=== PATIENT | male | born 2000 | race Caucasian/White ===

== ENCOUNTER 2021-07-02 15:44 | Emergency (ER) | payer BC, SELFPAY ==
--- NOTE | ~2021-07-02 | XR_ITS ---
EXAMINATION: XR chest 2V EXAM DATE: 07/02/2021 17:03 INDICATION: Chest pain @ center of chest with SOB x 1 day. TECHNIQUE: Frontal and lateral projections of the chest obtained and reviewed. There is no prior izzy dy for comparison. FINDINGS: The lungs are clear. There are no pleural effusions. The cardiomediastinal silhouette is within normal limits. There is no pneumothorax suspected. The bones and soft tissues are unremarkab le. IMPRESSION: No acute cardiopulmonary findings. Reviewed, dictated and finalized at location G.
[2021-07-02 15:44] VITALS: BP 144/99; PULSE 96; RESP 20; TEMP 36.6; O2SAT 100
--- NOTE | 2021-07-02 15:47 | ECG_ITS ---
Measurements Intervals [place] Rate: 90 P: 38 MD: 134 QRS: 7 QRSD: 94 T: 29 QT: 344 QTc: 422 Interpretive Statements SINUS RHYTHM DELAYED PRECORDIAL R/S TRANSITION BORDERLINE ECG Electronically Signed On 07-02-2021 18:58:31 CDT by Filippo Grant D.O.
[2021-07-02 15:48] VITALS: PULSE 91
[2021-07-02] MEDS: ONDANSETRON INJ 4 MG/2 ML VIAL IV PUSH (16:08)
[2021-07-02] MEDS: SODIUM CHLORIDE 0.9% IV 1,000 ML 999 ML IV CONT (16:09)
[2021-07-02] MEDS: KETOROLAC 30 MG/ML VIAL (*BKC) IV PUSH (16:10)
[2021-07-02 16:18] LABS: Basophils Absolute Auto 0.05 K/mm3 (0.00-0.10); Basophils Percent Auto 0.3 % (0.0-1.0); Eosinophils Absolute Auto 0.04 K/mm3 (0.02-0.50); Eosinophils Percent Auto 0.3 % (1.0-6.0); Hematocrit 47.1 % (40.0-54.0); Hemoglobin 16.6 g/dL (14.0-18.0); Immature Granulocyte Absolute 0.08 K/mm3 (0.00-0.00); Immature Granulocyte Percent A 0.5 % (0.0-0.0); Lymphocytes Absolute Auto 1.32 K/mm3 (1.10-4.50); Lymphocytes Percent Auto 8.7 % (18.0-42.0); Mean Corpuscular HGB Conc 35.2 g/dL (32.0-36.0); Mean Corpuscular Hemoglobin 30.8 pg (27.0-31.0); Mean Corpuscular Volume 87.4 fL (78.0-102.0); Mean Platelet Volume 9.3 fl (8.7-11.0); Monocytes Absolute Auto 0.73 K/mm3 (0.10-0.90); Monocytes Percent Auto 4.8 % (2.0-11.0); Neutrophils Percent Auto 85.4 % (50.0-70.0); Platelet Count Result 333 K/mm3 (150-420); Red Blood Count 5.39 M/mm3 (4.70-6.10); Red Cell Distribution Width 12.6 % (11.6-14.4); White Blood Count 15.2 K/mm3 (4.8-10.8)
[2021-07-02 16:27] LABS: Partial Thromboplastin Time 27.3 SEC (23.90-30.70); Prothrombin Time 10.9 Seconds (9.50-12.10)
[2021-07-02 16:33] LABS: Alanine Aminotransferase 72 U/L (16-63); Albumin Level 4.6 g/dL (3.4-5.0); Alkaline Phosphatase 80 U/L (46-116); Anion Gap 16 mmol/L (8-16); Aspartate Amino Transferase 27 U/L (15-37); Bilirubin,Total 0.7 mg/dL (0.00-1.00); Blood Urea Nitrogen 11 mg/dL (7-18); Calcium 9.5 mg/dL (8.5-10.1); Carbon Dioxide 24 mmol/L (21-32); Chloride 100 mmol/L (98-108); Estimated CRCL calculation 151 ml/min; Estimated Glomerular Filt Rate > 60; Glucose 103 mg/dL (70-99); Lipase 72 U/L (73-393); Osmolality Calculated 289 mOsm/kg (285-295); Potassium 3.6 mmol/L (3.5-5.1); Sodium 140 mmol/L (136-145); Total Protein 8.4 g/dL (6.4-8.2)
[2021-07-02 16:35] LABS: Troponin I 4.5 ng/L (0.00-60.4)
[2021-07-02 17:00] LABS: SARS-CoV-2 RNA PCR Negative (Negative)
--- NOTE | 2021-07-02 17:04 | ED.CHESTPAIN ---
HPI - Chest Pain General Chief Complaint: Chest Pain Stated Complaint: Chest pain, trouble breathing, vomiting, diarrhea Source: patient Mode of arrival: ambulatory Limitations: no limitations History of Present Illness HPI narrative: this is a 21-year-old male with recent diagnosis of high blood pressure and was started on blood pressure medication 2 days ago, woke up this morning with some chest discomfort reproducible with palpation mid sternal area and epigastric area with some mild shortness of breath patient is not a smoker, no illicit drug use. There is no radiation of his pain there was some nausea with no vomiting no diarrhea constipation no abdominal pain pain started earlier this morning after he woke up and has been off and on throughout the day. Patient has no known coronary history no family history of heart disease nonsmoker. MD complaint: chest discomfort Onset (ago): hour(s) Timing of current episode: episodic Onset: during rest Pain location: parasternal ( reproducible with palpation) Pain radiation: none Severity: mild Quality: aching Related Data Home Medications Medication Instructions Recorded Confirmed lisinopril 10 mg PO DAILY 07/02/21 07/02/21 Allergies Allergy/AdvReac Type Severity Reaction Status Date / Time No Known Allergies Allergy Unverified 08/13/14 21:44 Review of Systems Review of Systems: All systems reviewed & are unremarkable except as noted in HPI and below PMFSH Past Medical History Medical History HTN (hypertension) Exam Const: General: no acute distress and alert Orientation/consciousness: patient oriented x3 HENMT: Head: normal to inspection Eyes: Conjunctivae: conjunctivae normal Pupils: Equal, round and reactive pupils present EOM: EOMs intact bilaterally Direct Ophthalmoscopy: no photophobia Neck: Neck: normal visual inspection, no lymphadenopathy and no meningeal signs Chest: Chest palpation & inspection: normal inspection of the chest Resp: Effort & Inspection: normal respiratory effort Auscultation: clear to auscultation bilaterally Cardio: Rate: regular rate Rhythm: regular rhythm GI: Auscultation: normal bowel sounds Other: epigastric tenderness with palpation : Testes: Testes normal Back/Spine/Pelvis: Back: no CVA tenderness Skin: General skin exam: normal color Rashes: no rashes Neuro: General: patient oriented x3, moves all extremities, no meningeal signs and no focal motor deficits Extrem: General: normal to inspection and no pedal edema Psych: Mental Status: mental status grossly normal Affect: normal affect Course Course Emergency Course: patient received IV fluids and Toradol labs reviewed with patient along with some x-ray and will start the patient on a Z-Waldo for a upper respiratory tract infection. Vital Signs Vital signs: Vital Signs Temperature 36.6 C 07/02/21 15:44 Pulse Rate 96 07/02/21 15:44 Respiratory Rate 20 07/02/21 15:44 Blood Pressure 144/99 H 07/02/21 15:44 Pulse Oximetry 100 07/02/21 15:44 Temperature 36.6 C 07/02/21 15:44 Pulse Rate 91 07/02/21 15:48 Respiratory Rate 20 07/02/21 15:44 Blood Pressure 144/99 H 07/02/21 15:44 Pulse Oximetry 100 07/02/21 15:44 MDM - Chest Pain Lab Data Result diagrams: 07/02/21 16:09 07/02/21 16:09 Labs: Lab Results 07/02/21 07/02/21 07/02/21 Range/Units 16:09 16:09 16:09 WBC 15.2 H (4.8-10.8) K/mm3 RBC 5.39 (4.70-6.10) M/mm3 Hgb 16.6 (14.0-18.0) g/dL Hct 47.1 (40.0-54.0) % MCV 87.4 (78.0-102.0) fL MCH 30.8 (27.0-31.0) pg MCHC 35.2 (32.0-36.0) g/dL RDW 12.6 (11.6-14.4) % Plt Count 333 (150-420) K/mm3 MPV 9.3 (8.7-11.0) fl Immature Gran % (Auto) 0.5 H (0.0-0.0) % Neut % (Auto) 85.4 H (50.0-70.0) % Lymph % (Auto) 8.7 L (18.0-42.0) % [place] % (Auto) 4.8 (2.0-11.0) % Eos
[2021-07-02 17:30] VITALS: BP 142/81; PULSE 97; RESP 24; O2SAT 97
--- NOTE | 2021-07-02 18:20 | PC.NURSE ---
1610 WHILE RN WAS INITIATING IV ACCESS, PATIENT BECAME PALE, DIAPHORETIC, DIZZY, AND NAUSEOUS. PT PLACED IN [place]. VITAL SIGNS AND CARDIAC MONITORING AT THIS TIME. RN AT BEDSIDE UNTIL PATIENT RECOVERED FROM THIS EPISODE LASTING APPROX. 3 MINUTES. ERP MADE AWARE.
== END 2021-07-02 17:30 | disposition home or self-care (01) ==
PROVIDERS: Emergency Provider Emergency Medicine
DX: J06.9 Acute upper respiratory infection, unspecified (principal); Z20.822 Contact with and (suspected) exposure to COVID-19
CPT/HCPCS: 71046; 80053; 83690; 84484; 85025; 85610; 85730; 93005; 96361; 96374; 96375; 99283; 99284; C9803; J1885; J2405; J7030; U0003; U0005

== ENCOUNTER 2022-04-27 22:26 | Emergency (ER) | payer BC, SELFPAY ==
--- NOTE | ~2022-04-27 | XR_ITS ---
EXAM: XR ankle RT min 3V, XR foot RT 2V DATE: 04/27/2022 22:54 (accession [id number]), 04/27/2022 22:55 (accession [id number]) HISTORY: ankle fracture/dislocation . COMPARISON: None available. FINDINGS: Normal mineralization. Comminuted fractures of the distal fibular shaft posterior angulati on. Widening of the syndesmosis. Posteriorly displaced fractures of the medial malleolus and posterio r malleolus. Posterior dislocation of the talus. No lytic or blastic lesion. No erosion or periosteal change. Lower leg and ankle soft tissue swelling. IMPRESSION: Posterior right tibiotalar dislocation. Angulated fracture of the distal right fibular sh aft, with posteriorly displaced fractures of the right medial malleolus and right posterior malleolus (Carrington C type fracture pattern). Right syndesmosis injury. [facility]ed[facility] IMPRESSION: Posterior right tibiotalar dislocation. Angulated fracture of the d istal right fibular shaft, with posteriorly displaced fractures of the right me dial malleolus and right posterior malleolus (Carrington C type fracture pattern). R ight syndesmosis injury.
[2022-04-27 22:28] VITALS: BP 155/94; PULSE 84; RESP 20; TEMP 36; O2SAT 99
--- NOTE | 2022-04-27 22:36 | ED.LOWEXIN ---
HPI - Extremity Injury (Lower) General Chief Complaint: Extremity Injury, Lower Stated Complaint: R ankle pain Time Seen by Provider: 04/27/22 22:36 Source: patient Mode of arrival: wheelchair History of Present Illness HPI Narrative: 21-year-old male was at the Transfer To when he lost balance and fell. he twisted his right ankle and presents with -- 2 cm ulceration in front of the right medial malleolus -- pain and swelling of the lower leg/ ankle MD complaint: ankle injury Onset (ago): hour(s) ( 1 hour ago) Injury: Right: ankle and foot Type of Injury: eversion Place: other ( [place]) Severity: severe Relieving factors: immobilization Exacerbating factors: movement Context: fall Associated symptoms: snap/pop sensation Related Data Home Medications Medication Instructions Recorded Confirmed lisinopril 10 mg tablet 10 mg PO DAILY 07/02/21 04/28/22 Adult Low Dose Aspirin 81 mg PO BID 04/28/22 04/28/22 hydrocodone 5 mg-acetaminophen 325 5 tablet PO PRN PRN Pain 04/28/22 04/28/22 mg tablet Allergies Allergy/AdvReac Type Severity Reaction Status Date / Time No Known Allergies Allergy Verified 04/27/22 22:37 Review of Systems Review of Systems: All systems reviewed & are unremarkable except as noted in HPI and below Constitutional: Constitutional: Reports as per HPI and Reports no additional constitutional complaints Eyes: Eyes: Reports as per HPI and Reports no additional eye complaints ENT: Reports system reviewed and no additional complaints, except as documented and Reports as per HPI Cardiovascular: Cardiovascular: Reports as per HPI and Reports no additional cardiovascular complaints Respiratory: Respiratory: Reports as per HPI and Reports no additional respiratory complaints Gastrointestinal: Gastrointestinal: Reports as per HPI and Reports no additional gastrointestinal complaints Genitourinary: Genitourinary: Reports no additional male genitourinary complaints and Reports as per HPI Musculoskeletal: Musculoskeletal: Reports no additional musculoskeletal complaints and Reports as per HPI Comments: right ankle pain and swelling with a 2 cm front of right medial malleolus Integumentary/Breasts: Skin/Breast: Reports system reviewed and no additional complaints, except as docu and Reports as per HPI Neurologic: Reports system reviewed and no additional complaints, except as documented and Reports as per HPI Psychiatric: Psychiatric: Reports no additional psychiatric complaints and Reports as per HPI Endocrine: Endocrine: Reports no additional endocrine complaints and Reports as per HPI PMFSH Past Medical History Medical History (Updated 04/29/22 @ 00:51 by Tamia Valdez MD) Ankle pain, right HTN (hypertension) Surgical History Surgical History (Updated 04/28/22 @ 23:35 by Oliverio Matos RN) H/O shoulder surgery Exam Const: Nutritional Appearance: obese Orientation/consciousness: patient oriented x3 Limitations: no limitations Other: in distress secondary to pain HENMT: Head: normal to inspection Ears: external ears normal General nose exam: Normal external nose present Face and sinus: normal facial exam Throat: posterior oropharynx normal Eyes: Conjunctivae: conjunctivae normal Pupils: Equal, round and reactive pupils present EOM: EOMs intact bilaterally Direct Ophthalmoscopy: no photophobia Neck: Neck: normal visual inspection, no lymphadenopathy and no meningeal signs Chest: Chest palpation & inspection: normal inspection of the chest Resp: Effort & Inspection: normal respiratory effort Auscultation: clear to auscultation bilaterally Cardio: Rate: regular rate Rhythm: regular rhythm GI: GI Palp: Yes Soft to palpation Other: no tenderness/ rigidity /rebound Back/Spine/Pelvis: Back: no CVA tenderness Skin: Other: 2 cm ulceration in front of right medial malleolus Neuro: General: patient oriented x3 Cranial nerves: Yes Nystagmus not present
[2022-04-27] MEDS: ONDANSETRON HCL ODT 4 MG TABLET PO (22:43)
[2022-04-27] MEDS: HYDROmorphone HCL INJ (*CRX) 2 MG/ML VIAL 1 MG IM ×2 (22:44→23:32)
[2022-04-27 22:45] VITALS: BP 137/100; PULSE 68; RESP 16; O2SAT 97
[2022-04-27 23:15] VITALS: BP 139/81; RESP 16; O2SAT 99
--- NOTE | 2022-04-27 23:24 | PC.NURSE ---
RN called [facility] for a trauma transfer to [place]. After talking to Ca from [facility], RN transfers to [facility] to talk to [facility] physicians. Dr. Carvajal states that [facility] has accepted pt and will be going to ED.
[2022-04-27] MEDS: LACTATED RINGERS 1,000 ML 999 ML IV CONT (23:43)
[2022-04-27 23:46] VITALS: BP 123/75; PULSE 75; RESP 16; O2SAT 98
[2022-04-28 00:06] VITALS: BP 135/85; PULSE 77; RESP 16; TEMP 36.7; O2SAT 99
[2022-04-28 00:30] VITALS: BP 136/97; PULSE 81; RESP 16; O2SAT 99
[2022-04-28] MEDS: HYDROmorphone HCL INJ (*CRX) 2 MG/ML VIAL 0.5 MG IV PUSH (00:34)
--- NOTE | 2022-04-28 00:43 | PC.NURSE ---
ERP orders 0.5mg of Dilaudid IV push while pt is on EMS stretcher for pain that has been unrelieved by last two doses.
== END 2022-04-28 00:35 | disposition short-term general hospital (02) ==
PROVIDERS: Emergency Provider Internal Medicine Critical Care Medicine
DX: S82.891B Other fracture of right lower leg, initial encounter for open fracture type I or II (principal); S82.401A Unspecified fracture of shaft of right fibula, initial encounter for closed fracture; W19.XXXA Unspecified fall, initial encounter
CPT/HCPCS: 73610; 73620; 96365; 96372; 96375; 99285; A9270; J0696; J1170; J7120

== ENCOUNTER 2022-04-28 23:18 | Emergency (ER) | payer BC, SELFPAY ==
[2022-04-28 23:36] VITALS: BP 137/100; PULSE 116; RESP 22; TEMP 37; O2SAT 100
--- NOTE | 2022-04-28 23:36 | ED.EXTPRO ---
HPI - Extremity Problem General Chief complaint: Extremity Problem,Nontraumatic Stated complaint: foot pain Time Seen by Provider: 04/28/22 23:22 Source: patient and RN notes reviewed Mode of arrival: EMS Limitations: no limitations History of Present Illness HPI Narrative: post surgical pain of right ankle. pt had IV Dilaudid + a nerve block + [place] PO. Complaint: extremity pain Onset (ago): hour(s) (2) Pain Consistency: constant Location: right and lower extremity Severity scale (1-10): 8 Quality: aching Relieving factors: elevation Exacerbating factors: nothing Associated symptoms: denies other symptoms Related Data Home Medications Medication Instructions Recorded Confirmed lisinopril 10 mg tablet 10 mg PO DAILY 07/02/21 04/28/22 Adult Low Dose Aspirin 81 mg PO BID 04/28/22 04/28/22 hydrocodone 5 mg-acetaminophen 325 5 tablet PO PRN PRN Pain 04/28/22 04/28/22 mg tablet Allergies Allergy/AdvReac Type Severity Reaction Status Date / Time No Known Allergies Allergy Verified 04/27/22 22:37 Review of Systems Review of Systems: All systems reviewed & are unremarkable except as noted in HPI and below Constitutional: Constitutional: Reports no additional constitutional complaints Eyes: Eyes: Reports no additional eye complaints ENT: Reports system reviewed and no additional complaints, except as documented Cardiovascular: Cardiovascular: Reports no additional cardiovascular complaints Respiratory: Respiratory: Reports no additional respiratory complaints Gastrointestinal: Gastrointestinal: Reports no additional gastrointestinal complaints Musculoskeletal: Musculoskeletal: Reports arthralgias Integumentary/Breasts: Skin/Breast: Reports system reviewed and no additional complaints, except as docu Neurologic: Reports system reviewed and no additional complaints, except as documented Psychiatric: Psychiatric: Reports no additional psychiatric complaints Endocrine: Endocrine: Reports no additional endocrine complaints Hematologic/Lymphatic: Hematologic/Lymphatic: Reports no additional hematologic/lymphatic complaints Allergic/Immunologic: Allergic/Immunologic: Reports no additional allergic/immunologic complaints PMFSH Past Medical History Medical History (Updated 04/29/22 @ 00:51 by Tamia Valdez MD) Ankle pain, right HTN (hypertension) Surgical History Surgical History (Updated 04/28/22 @ 23:35 by Oliverio Matos RN) H/O shoulder surgery Exam Const: General: healthy appearing and no acute distress Nutritional Appearance: well nourished Orientation/consciousness: patient oriented x3 Limitations: no limitations HENMT: Head: normal to inspection Ears: external ears normal, TM's normal bilaterally and EAC's normal General nose exam: Normal external nose present and Normal nares present Face and sinus: normal facial exam and sinuses nontender Mouth: Yes Normal oral and palatal mucosa present and Yes moist mucous membranes Teeth and gingiva: dentition normal Throat: posterior oropharynx normal Eyes: Conjunctivae: conjunctivae normal Pupils: Equal, round and reactive pupils present EOM: EOMs intact bilaterally Neck: Neck: normal visual inspection, no lymphadenopathy and no meningeal signs Chest: Chest palpation & inspection: normal inspection of the chest Resp: Effort & Inspection: normal respiratory effort Auscultation: clear to auscultation bilaterally Cardio: Rate: regular rate Rhythm: regular rhythm GI: GI Palp: Yes Soft to palpation and No Tenderness to palpation present (GI) Auscultation: normal bowel sounds : General: Yes bladder normal to palpation and Yes no CVA tenderness Back/Spine/Pelvis: Back: no CVA tenderness Skin: General skin exam: normal color Rashes: no rashes Wounds: no wounds Neuro: General: patient oriented x3, moves all extremities, no meningeal signs, no focal motor deficits and CN's II-XI intact bilaterally Cranial nerves: Yes
[2022-04-29] MEDS: KETOROLAC (*BKC) 60 MG/2 ML VIAL IM (00:09)
[2022-04-29 00:17] VITALS: BP 153/86; PULSE 99; RESP 18; O2SAT 100
== END 2022-04-29 00:18 | disposition home or self-care (01) ==
PROVIDERS: Emergency Provider Emergency Medicine
DX: G89.18 Other acute postprocedural pain (principal); M25.571 Pain in right ankle and joints of right foot
CPT/HCPCS: 96372; 99283; J1885

== ENCOUNTER 2022-06-02 19:02 | Emergency (ER) | payer BC, MEDICAID, SELFPAY ==
--- NOTE | 2022-06-02 19:07 | ED.EXTPRO ---
HPI - Extremity Problem General Chief complaint: Extremity Injury, Lower Stated complaint: infection right foot Time Seen by Provider: 06/02/22 19:17 Source: patient and RN notes reviewed Mode of arrival: ambulatory Limitations: no limitations History of Present Illness HPI Narrative: 22 year old male prsents with concern for infected surgical wound. Reports he had an ankle fracture at the beginning of April had surgery with hardware placed. Reports he has been in a walking boot since that time. Reports his surgeon saw the wound on May 18. He reports since then the incision and the back of the ankle has become more red and has drainage. He reports he is concerned for infection. He does not follow-up with a surgeon for more than 1 week, he reports he is not able to get into a surgeon any sooner. MD Complaint: extremity pain Related Data Home Medications Medication Instructions Recorded Confirmed Adult Low Dose Aspirin 81 mg PO BID 04/28/22 04/28/22 Allergies Allergy/AdvReac Type Severity Reaction Status Date / Time No Known Allergies Allergy Verified 04/27/22 22:37 Review of Systems Review of Systems: CONSTITUTIONAL: Denies malaise, chills, sweats, or fever. CARDIOVASCULAR: Denies chest pain, palpitations, or edema. RESPIRATORY: Denies cough or dyspnea. SKIN: Denies rash or itching, bruising. Reports surgical incisions with surrounding redness, drainage MUSCULOSKELETAL: Denies change in pain, swelling to the right foot or ankle NEUROLOGIC: Denies numbness, weakness All systems reviewed & are unremarkable except as noted in HPI and below PMFSH Past Medical History Medical History (Updated 06/02/22 @ 19:31 by Pat Maddox NP) Ankle pain, right HTN (hypertension) Surgical History Surgical History (Updated 04/28/22 @ 23:35 by Oliverio Matos RN) H/O shoulder surgery Comments At time of signature, agree with nursing past medical, surgical, social and family history. There is no relevant family history pertinent to the presenting complaint Exam Narrative: GENERAL: Well-appearing, well-nourished, and in no acute distress. HEAD: Normocephalic, atraumatic. EYES: PERRLA, conjunctivae clear ENT: Mucous membranes moist. NECK: Supple. No lymphadenopathy CHEST: Clear to auscultation. No respiratory distress. HEART: Regular rate and rhythm. SKIN: Warm, dry. 3 surgical incisions noted to the right ankle, the anterior wound is scabbed without concerning erythema, edema, induration. The posterior lateral wound is slightly dehisced with yellow tissue bed with small amount of surrounding redness, induration, slight warmth. The posterior medial wound is unremarkable NEURO: Alert and oriented x3. PSYCH: Normal mood and affect Course Course Emergency Course: Discussed with the patient that it is optimal for his surgeon to monitor and manage his wound, however since he is unable to be seen I will prescribe an antibiotic that the patient can start if his symptoms increase or worsen. Patient was advised is ideal to follow-up with his surgeon for further evaluation. Patient is aware of diagnosis, understands and agrees to treatment plan. Anticipatory guidance given. Patient agrees to follow-up as directed and is aware of reasons to seek care at the emergency department. Portions of this record may have been created with voice recognition software Level of Care: Express Care Visit Vital Signs Vital signs: Reviewed. Critical Care Time Critical Care Time Critical Care Time: No Discharge Plan Discharge Clinical Impression: Postoperative complication of skin involving drainage from surgical wound Patient Disposition: Home, Self-Care Condition: Stable Instructions: Antibiotic Form, General Patient Instructions Additional Instructions: Continue to dress your wounds as directed by orthopedic surgeon. Continue to monitor your wound, if redness worsens becomes more swollen, more warm you can begin t
[2022-06-02 19:10] VITALS: BP 151/89; PULSE 91; RESP 20; TEMP 37; O2SAT 100
== END 2022-06-02 19:41 | disposition home or self-care (01) ==
PROVIDERS: Emergency Provider Nurse Practitioner
DX: T81.49XA Infection following a procedure, other surgical site, initial encounter (principal); I10 Essential (primary) hypertension
CPT/HCPCS: 99213; G0463

== ENCOUNTER 2022-07-17 15:54 | Emergency (ER) | payer BC, OTHER, SELFPAY ==
--- NOTE | ~2022-07-17 | XR_ITS ---
EXAMINATION: XR ankle LT min 3V DATE: 07/17/2022 16:30 INDICATION: Lateral sided left ankle pain post fall TECHNIQUE: Anteroposterior, oblique, mortise, and lateral views of the left ankle were obtained. COMPARISON: None. FINDINGS: Alignment is normal. No fracture. Joint spaces are well maintained. No ankle joint effusion. Mild s oft tissue swelling overlying the lateral malleolus. IMPRESSION: 1. No osseous abnormality or evident left ankle joint effusion. Reviewed, dictated and finalized at location A.
[2022-07-17 15:55] VITALS: BP 164/91; PULSE 89; RESP 16; TEMP 36.4; O2SAT 100
[2022-07-17 16:07] VITALS: BP 164/91; PULSE 89; RESP 16; TEMP 36.4; O2SAT 100
[2022-07-17] MEDS: HYDROcodone/acetaminophen (*CRX) 5-325 MG TABLET 1 TAB PO (16:43)
[2022-07-17] MEDS: IBUPROFEN 400 MG TABLET 800 MG PO (16:44)
--- NOTE | 2022-07-17 17:03 | ED.GENADULT ---
HPI - General Adult General Chief complaint: Extremity Injury, Lower Stated complaint: L ankle injury Time Seen by Provider: 07/17/22 16:04 History of Present Illness HPI narrative: 22-year-old male who was stepping off his deck whereby he twisted his left ankle and fell. Unable to bear much weight on the left ankle since this event today. Of note, he did have a right tibiotalar dislocation with fracture that underwent surgical repair recently few months ago. He is able to bear weight on his right length at this point. No complaints of neck or back pain. No other injuries. Pain in the left ankle is just at the inferior aspect of the left lateral malleolus with mild swelling in that area. No other complaints. Related Data Home Medications Medication Instructions Recorded Confirmed lisinopril 10 mg tablet 10 mg PO DAILY 07/17/22 07/17/22 Allergies Allergy/AdvReac Type Severity Reaction Status Date / Time No Known Allergies Allergy Verified 07/17/22 16:11 Review of Systems Review of Systems: All systems reviewed & are unremarkable except as noted in HPI and below Constitutional: Constitutional: Reports no additional constitutional complaints, Denies anorexia, Denies body ache(s), Denies chills, Denies excessive sweating, Denies fatigue, Denies fever(s), Denies frequent falls, Denies headache(s), Denies malaise and Denies poor appetite Eyes: Eyes: Reports no additional eye complaints, Denies blurry vision, Denies change in vision, Denies irritation, Denies itchy eyes and Denies photophobia ENT: Reports system reviewed and no additional complaints, except as documented, Reports Normal hearing present, Denies change in voice, Denies dysphagia, Denies vertigo, Denies dizziness, Denies ear discharge, Denies headache(s), Denies hearing loss, Denies hoarseness, Denies nasal congestion, Denies neck pain, Denies sinus pressure, Denies sore throat and Denies throat swelling Cardiovascular: Cardiovascular: Reports no additional cardiovascular complaints, Denies chest pain, Denies syncope, Denies rapid heart rate, Denies irregular heart rhythm, Denies leg edema, Denies dyspnea and Denies slow heart rate Respiratory: Respiratory: Reports no additional respiratory complaints, Denies cough, Denies dyspnea, Denies stridor and Denies wheezing Gastrointestinal: Gastrointestinal: Reports no additional gastrointestinal complaints, Denies abdominal pain, Denies melena, Denies hematochezia, Denies dysphagia, Denies diarrhea, Denies nausea and Denies vomiting Genitourinary: Genitourinary: Denies hematuria, Denies oliguria, Denies dysuria, Denies flank pain, Denies urinary frequency and Denies urinary urgency Musculoskeletal: Musculoskeletal: Reports no additional musculoskeletal complaints, Reports abnormal gait, Denies back pain, Denies myalgias, Reports arthralgias, Reports joint swelling, Reports limited range of motion, Denies muscle cramps, Denies muscle weakness, Denies neck pain and Denies numbness Integumentary/Breasts: Skin/Breast: Reports system reviewed and no additional complaints, except as docu, Denies breast pain, Denies change in pigmentation, Denies pruritus, Denies erythema and Denies wounds Neurologic: Reports system reviewed and no additional complaints, except as documented, Reports Normal hearing present, Denies Abnormal speech present, Denies abnormal gait, Denies confusion, Denies vertigo, Denies dizziness, Denies syncope, Denies frequent falls, Denies headache(s), Denies focal weakness, Denies numbness and Denies paresthesias Psychiatric: Psychiatric: Reports no additional psychiatric complaints and Denies confusion Endocrine: Endocrine: Reports no additional endocrine complaints, Denies cold intolerance, Denies excessive sweating, Denies fatigue and Denies heat intolerance Hematologic/Lymphatic: Hematologic/Lymphatic: Reports no additional hematologic/lymphatic complaints, Denies easy bleeding and Denies easy bruising Allergic/
[2022-07-17 17:16] VITALS: BP 148/89; PULSE 83; RESP 16; O2SAT 99
[2022-07-17 17:30] VITALS: BP 141/69; PULSE 85; RESP 16; TEMP 36.3; O2SAT 100
== END 2022-07-17 17:40 | disposition home or self-care (01) ==
PROVIDERS: Emergency Provider Emergency Medicine
DX: S93.402A Sprain of unspecified ligament of left ankle, initial encounter (principal)
CPT/HCPCS: 29515; 73610; 99283; A9270; L4350

== ENCOUNTER 2023-09-10 11:55 | Emergency (ER) | payer BC, SELFPAY ==
[2023-09-10 12:11] VITALS: BP 145/78; PULSE 60; RESP 20; TEMP 36.6; O2SAT 98
--- NOTE | 2023-09-10 12:30 | ED.DIZZY ---
HPI - Dizziness General Chief Complaint: Dizziness Stated Complaint: Dizziness Source: patient Mode of arrival: ambulatory Limitations: no limitations History of Present Illness HPI Narrative: 23-year-old male presented for complaint of dizziness since yesterday and muffled hearing with tinnitus in the right ear. He states symptoms started with the left-sided sore throat which then transition to left ear pain, which then transition to right ear pain. Reports dizziness when standing. Took ibuprofen. Denies n/v/d/f/c. Related Data Allergies Allergy/AdvReac Type Severity Reaction Status Date / Time No Known Allergies Allergy Verified 07/17/22 16:11 Review of Systems Review of Systems: CONSTITUTIONAL: Denies malaise, chills, or fever. EYES: Denies visual changes, redness, or discharge. ENT: Denies rhinorrhea, congestion, sinus pain, and sore throat. Reports ear pain CARDIOVASCULAR: Denies chest pain, palpitations, or edema. RESPIRATORY: Denies cough or dyspnea. GASTROINTESTINAL: Denies abdominal pain, nausea, vomiting, diarrhea SKIN: Denies rash or itching. MUSCULOSKELETAL: Denies myalgia. NEUROLOGIC: Denies headache. All systems reviewed & are unremarkable except as noted in HPI and below PMFSH Past Medical History Medical History Ankle pain, right HTN (hypertension) Surgical History Surgical History H/O shoulder surgery Comments At time of signature, agree with nursing past medical, surgical, social and family history. There is no relevant family history pertinent to the presenting complaint Exam Narrative: GENERAL: Well-appearing EYES: PERRLA, conjunctivae clear ENT: Nares clear. Mucous membranes moist. TMs pearly fletcher with dull light reflex and clear effusion bilaterally; no tragal tenderness. Oropharynx not erythematous without lesions. NECK: Supple. No lymphadenopathy CHEST: Clear to auscultation, breath sounds equal. No wheezing, rhonchi, rales, or stridor. No respiratory distress, speaks in full sentences. HEART: Regular rate and rhythm. No murmur heard. SKIN: Warm, dry, no rash. NEURO: Alert and oriented x3. PSYCH: Normal mood and affect Course Course Emergency Course: Patient is aware of diagnosis, understands and agrees to treatment plan. Anticipatory guidance given. Patient agrees to follow-up as directed and is aware of reasons to seek care at the emergency department. Portions of this record may have been created with voice recognition software Level of Care: Express Care Visit Vital Signs Vital signs: Vital Signs Temperature 97.9 F 09/10/23 12:11 Pulse Rate 60 09/10/23 12:11 Respiratory Rate 20 09/10/23 12:11 Blood Pressure 145/78 H 09/10/23 12:11 Pulse Oximetry 98 09/10/23 12:11 Oxygen Delivery Room Air 09/10/23 12:11 Temperature 97.9 F 09/10/23 12:11 Pulse Rate 60 09/10/23 12:11 Respiratory Rate 20 09/10/23 12:11 Blood Pressure 145/78 H 09/10/23 12:11 Pulse Oximetry 98 09/10/23 12:11 Oxygen Delivery Room Air 09/10/23 12:11 Reviewed MDM - Dizziness MDM Narrative Medical decision making narrative: Discussed physical exam findings. Advised supportive measures and signs/symptoms to go to the ER. Pt is appropriate for outpt treatment and f/u. Differential Diagnosis Differential diagnosis: Likely benign paroxysmal positional vertigo, orthostatic hypotension, vertebral basilar insufficiency, acute vestibular neuronitis and transient cerebral ischemia Discharge Plan Discharge Clinical Impression: Acute serous otitis media, Vertigo Patient Disposition: Home, Self-Care Condition: Stable Instructions: Antibiotic Form, Vertigo (ED) Additional Instructions: Take antibiotics as directed. Recommend antihistamine such as Benadryl, Zyrtec or Antonette Flonase nasal spray, 1 spray in each nostril once daily until symptoms
== END 2023-09-10 12:47 | disposition home or self-care (01) ==
PROVIDERS: Emergency Provider Nurse Practitioner Family; PCP Internal Medicine
DX: H65.03 Acute serous otitis media, bilateral (principal); R42 Dizziness and giddiness; I10 Essential (primary) hypertension
CPT/HCPCS: 99213; G0463

== ENCOUNTER 2023-09-29 16:24 | Emergency (ER) | payer BC, SELFPAY ==
--- NOTE | ~2023-09-29 | XR_ITS ---
EXAMINATION: XR knee LT 3V DATE: 09/29/2023 17:14 INDICATION: Left knee pain. TECHNIQUE: 3 views of left knee were obtained. COMPARISON: None. FINDINGS: Bone alignment is normal. No fracture. Joint spaces are normal. No knee joint effusion. IMPRESSION: 1. Normal left knee. Reviewed, dictated and finalized at location [facility] IMPRESSION: 1. Normal left knee.
[2023-09-29 16:24] VITALS: BP 165/96; PULSE 74; RESP 16; TEMP 37.1; O2SAT 100
[2023-09-29 16:48] VITALS: BP 165/96; PULSE 74; RESP 16; TEMP 37.1; O2SAT 100
[2023-09-29 17:11] LABS: Basophils Absolute Auto 0.07 K/mm3 (0.00-0.10); Basophils Percent Auto 0.5 % (0.0-1.0); Eosinophils Absolute Auto 0.03 K/mm3 (0.02-0.50); Eosinophils Percent Auto 0.2 % (1.0-6.0); Hematocrit 42.6 % (40.0-54.0); Immature Granulocyte Absolute 0.06 K/mm3 (0.00-0.00); Immature Granulocyte Percent A 0.4 % (0.0-0.0); Lymphocytes Absolute Auto 2.73 K/mm3 (1.10-4.50); Lymphocytes Percent Auto 18.9 % (18.0-42.0); Mean Corpuscular HGB Conc 35.2 g/dL (32.0-36.0); Mean Corpuscular Hemoglobin 30.5 pg (27.0-31.0); Mean Corpuscular Volume 86.8 fL (78.0-102.0); Mean Platelet Volume 8.7 fl (8.7-11.0); Monocytes Absolute Auto 1.36 K/mm3 (0.10-0.90); Monocytes Percent Auto 9.4 % (2.0-11.0); Neutrophils Absolute Auto 10.2 K/mm3 (1.7-7.2); Neutrophils Percent Auto 70.6 % (50.0-70.0); Platelet Count Result 386 K/mm3 (150-420); Red Blood Count 4.91 M/mm3 (4.70-6.10); Red Cell Distribution Width 12.9 % (11.6-14.4); White Blood Count 14.4 K/mm3 (4.8-10.8)
[2023-09-29] MEDS: ONDANSETRON HCL ODT 4 MG TABLET PO (17:28)
[2023-09-29] MEDS: KETOROLAC (*BKC) 60 MG/2 ML VIAL IM (17:28)
[2023-09-29 17:38] LABS: Alanine Aminotransferase 104 U/L (16-63); Albumin Level 3.7 g/dL (3.4-5.0); Alkaline Phosphatase 82 U/L (46-116); Anion Gap 8 mmol/L (8-16); Aspartate Amino Transferase 22 U/L (15-37); Bilirubin,Total 0.7 mg/dL (0.00-1.00); Blood Urea Nitrogen 12 mg/dL (7-18); Calcium 9.4 mg/dL (8.5-10.1); Carbon Dioxide 31 mmol/L (21-32); Chloride 100 mmol/L (98-108); Estimated Glomerular Filt Rate > 60; Glucose 107 mg/dL (70-99); Osmolality Calculated 287 mOsm/kg (285-295); Potassium 3.3 mmol/L (3.5-5.1); Sodium 139 mmol/L (136-145); Total Protein 7.9 g/dL (6.4-8.2)
--- NOTE | 2023-09-29 17:50 | PC.NURSE ---
PT IS LYING ON STRETCHER WATCHING TV WITHOUT DISTRESS. PT IS WAITING RESULTS AT THIS TIME. WILL CONTINUE TO MONITOR.
[2023-09-29 18:16] LABS: SARS-CoV-2 RNA PCR Negative (Negative)
[2023-09-29 18:20] LABS: Influenza A QL RT-PCR Negative (Negative); Influenza B QL RT-PCR Negative (Negative); RSV RNA, RT-PCR Negative (Negative)
--- NOTE | 2023-09-29 18:28 | ED.LOWEXIN ---
HPI - Extremity Injury (Lower) General Chief Complaint: Extremity Injury, Lower Stated Complaint: left knee pain Time Seen by Provider: 09/29/23 16:38 Source: patient Mode of arrival: ambulatory Limitations: no limitations History of Present Illness HPI Narrative: this is a 23-year-old male with recently diagnosed with some viral syndrome/ [place] Grant and is currently on acyclovir and prednisone. Patient complains of nausea episodes of vomiting with no diarrhea pain no fever chills, but does have left knee pain no known injury there is no warmth or redness no known history of gout and the left knee is tender with palpation and movement. complaint: other Onset (ago): day(s) Injury: Left: knee ( Pain and discomfort) Severity: mild Relieving factors: nothing Exacerbating factors: palpation Related Data Home Medications Medication Instructions Recorded Confirmed ciprofloxacin HCl 500 mg tablet 500 mg PO BID 09/29/23 09/29/23 prednisone 20 mg tablet 20 mg PO DAILY 09/29/23 09/29/23 Allergies Allergy/AdvReac Type Severity Reaction Status Date / Time No Known Allergies Allergy Verified 09/29/23 16:47 Review of Systems Review of Systems: All systems reviewed & are unremarkable except as noted in HPI and below PMFSH Past Medical History Medical History Ankle pain, right HTN (hypertension) Surgical History Surgical History H/O shoulder surgery Exam Const: General: healthy appearing Nutritional Appearance: well nourished Orientation/consciousness: patient oriented x3 Limitations: no limitations Neck: Neck: normal visual inspection, no lymphadenopathy and no meningeal signs Chest: Chest palpation & inspection: normal inspection of the chest Resp: Effort & Inspection: normal respiratory effort Auscultation: clear to auscultation bilaterally Cardio: Rate: regular rate Rhythm: regular rhythm GI: GI Palp: Yes Soft to palpation Auscultation: normal bowel sounds Skin: General skin exam: normal color Rashes: no rashes Wounds: no wounds Neuro: General: patient oriented x3, moves all extremities and no meningeal signs Extrem: Other: Tender left knee Course Course Emergency Course: x-ray of the left knee shows no acute abnormalities white count is mildly elevated without a left shift probably related to him being on prednisone for his [place] Grant. Otherwise his potassium is mildly diminished and will send a prescription to replace his potassium levels, will send Zofran for his nausea advised to drink plenty of fluids and follow up with his primary if symptoms persist or worsen. Vital Signs Vital signs: Vital Signs Temperature 37.1 C 09/29/23 16:24 Pulse Rate 74 09/29/23 16:24 Respiratory Rate 16 09/29/23 16:24 Blood Pressure 165/96 H 09/29/23 16:24 Pulse Oximetry 100 09/29/23 16:24 Oxygen Delivery Room Air 09/29/23 16:24 Temperature 37.1 C 09/29/23 16:48 Pulse Rate 88 09/29/23 18:36 Respiratory Rate 18 09/29/23 18:36 Blood Pressure 140/85 09/29/23 18:36 Pulse Oximetry 99 09/29/23 18:36 Oxygen Delivery Room Air 09/29/23 18:36 MDM - Extremity Injury (Lower) Lab Data 09/29/23 17:08 09/29/23 17:08 Labs: Lab Results 09/29/23 Range/Units 17:08 WBC 14.4 H (4.8-10.8) K/mm3 RBC 4.91 (4.70-6.10) M/mm3 Hgb 15.0 (14.0-18.0) g/dL Hct 42.6 (40.0-54.0) % MCV 86.8 (78.0-102.0) fL MCH 30.5 (27.0-31.0) pg MCHC 35.2 (32.0-36.0) g/dL RDW 12.9 (11.6-14.4) % Plt Count 386 (150-420) K/mm3 MPV 8.7 (8.7-11.0) fl Immature Gran % (Auto) 0.4 H (0.0-0.0) % Neut % (Auto) 70.6 H (50.0-70.0) % Lymph % (Auto) 18.9 (18.0-42.0) % [place] % (Auto) 9.4 (2.0-11.0) % Eos % (Auto) 0.2 L (1.0-6.0) % Baso % (Auto) 0.5 (0.0-1.0) % Lymph # (Auto) 2.73 (1.10-4.50) K/mm3 [place] #
[2023-09-29 18:36] VITALS: BP 140/85; PULSE 88; RESP 18; O2SAT 99
--- NOTE | 2023-09-29 18:36 | PC.NURSE ---
+PMS POST NELLIE APPLICATION
== END 2023-09-29 18:40 | disposition home or self-care (01) ==
PROVIDERS: Emergency Provider Emergency Medicine; PCP Internal Medicine
DX: K52.9 Noninfective gastroenteritis and colitis, unspecified (principal); S86.912A Strain of unspecified muscle(s) and tendon(s) at lower leg level, left leg, initial encounter; I10 Essential (primary) hypertension; Z79.899 Other long term (current) drug therapy; Z20.822 Contact with and (suspected) exposure to COVID-19; X58.XXXA Exposure to other specified factors, initial encounter
CPT/HCPCS: 36415; 73562; 80053; 85025; 87637; 96372; 99283; A9270; J1885

== ENCOUNTER 2024-10-24 11:37 | Emergency (ER) | payer BC, MEDICAID, SELFPAY ==
[2024-10-24 11:44] VITALS: BP 154/93; PULSE 91; RESP 16; TEMP 36.8; O2SAT 100
--- NOTE | 2024-10-24 13:14 | ED.URI ---
HPI - URI/Sore Throat General Chief Complaint: Upper Respiratory Infection Stated Complaint: left ear/chest congestion/cough/wheezing Time Seen by Provider: 10/24/24 13:00 Source: patient, RN notes reviewed and old records reviewed Mode of arrival: ambulatory Limitations: no limitations History of Present Illness HPI Narrative: 24 year old male who presents to [facility] care with complaints of cough since Tuesday, and left ear pain for the past 2 days. Patient reports history of ear infection and placement of several sets of ear tubes when growing up. Patient reports that cough is productive at times of yellowish and brownish mucous.Patient reports no known fevers or chills or any body aches. he has been taking DayQuil and NyQuil for his symptoms. MD elicited complaint: cough, nasal congestion and other (left ear pain) Pertinent past history: tympanostony tubes Onset (ago): day(s) (3) Consistency: progressively worsening Severity: moderate Description of mucous: yellow and other (brown) Able to tolerate fluids by mouth: Yes Treatments prior to arrival: other (DayQuil and NyQuil) Related Data Allergies Allergy/AdvReac Type Severity Reaction Status Date / Time No Known Allergies Allergy Verified 09/29/23 16:47 Review of Systems Review of Systems: CONSTITUTIONAL: Reports malaise,no chills, sweats, or fever. EYES: Denies visual changes, redness, or discharge. ENT: Reports rhinorrhea, congestion,sinus pain,positive left otalgia and no sore throat. CARDIOVASCULAR: Denies chest pain, palpitations, or edema. RESPIRATORY: Reports productive cough.? Denies dyspnea. GASTROINTESTINAL: Denies abdominal pain, nausea, vomiting, diarrhea SKIN: Denies rash or itching. MUSCULOSKELETAL: Denies myalgia. NEUROLOGIC: Denies headache. All systems reviewed & are unremarkable except as noted in HPI and below PMFSH Past Medical History Medical History (Updated 10/25/24 @ 19:36 by Mica Bennett NP) Ear infection Ankle pain, right HTN (hypertension) Surgical History Surgical History (Updated 10/25/24 @ 19:48 by Mica Bennett NP) History of ankle surgery with placement of hardware History of placement of ear tubes numerous sets H/O shoulder surgery Social History Social History (Updated 10/25/24 @ 19:37 by Mica Bennett NP) Smoking status: Never smoker Alcohol intake: current Alcohol use details: social Substance use type: does not use Gender identity (if verbalized by the patient): Male Comments At time of signature, agree with nursing past medical, surgical, social and family history. There is no relevant family history pertinent to the presenting complaint Exam Narrative: GENERAL: Well-appearing, well-nourished, and in no acute distress. HEAD: Normocephalic EYES: PERRLA, conjunctivae clear ENT: Nares clear, turbinates edematous and erythematous, clear discharge sinus pressure,. Mucous membranes moist.Left TM red with some purulent drainage;possible TM rupture decrease hearing. Right TM pearly fletcher with dull light reflex ; no tragal tenderness. Oropharynx erythematous without lesions. Tonsils not enlarged and without exudate, no drooling, no hoarseness, no trismus, uvula midline.post nasal drainage. NECK: Supple. No lymphadenopathy CHEST: Clear to auscultation, breath sounds equal. No wheezing, rhonchi, rales, or stridor. No respiratory distress, speaks in full sentences.harsh productive cough, SAO2 100% on room air HEART: Regular rate and rhythm. No murmur heard. SKIN: Warm, dry, no rash. NEURO: Alert and oriented x3. PSYCH: Normal mood and affect Course Course Emergency Course: Patient is aware of diagnosis, understands and agrees to treatment plan.? Anticipatory guidance given.? Patient agrees to follow-up as directed and is aware of reasons to seek care at the emergency department. Portions of this record may have been created with voice recognition software Level of Care: Express Care Visit Vital Signs Vital signs: Vital Signs Temperature 36.8 C 10/24/24 11:44 Pulse Rate 91 10/24/24 11:44 Respiratory Rate 16 10/24/24 11:44 Blood Pressure 154/93 H 10/24/24 11:44 Pulse Oximetry 100 10/24/24 11:44 Oxygen Delivery Room Air 10/24/24 11:44 Temperature 36.8 C 10/24/24 11:44 Pulse Rate 91 10/24/24 11:44 Respiratory Rate 16 10/24/24 11:44 Blood Pressure 154/93 H 10/24/24 11:44 Pulse Oximetry 100 10/24/24 11:44 Oxygen Delivery Room Air 10/24/24 11:44 Reviewed MDM - URI/Sore Throat MDM Narrative Medical decision making narrative: Differential diagnosis considered: Steven virus, strep pharyngitis, allergic rhinitis, upper respiratory tract infection, sinusitis, rhinosinusitis, nasopharyngitis. viral pharyngitis, otitis media, otitis externa, pneumonia, bronchitis, viral cough syndrome, viral syndrome, and influenza.? Exam findings show no acute concerns or changes; patient is non-toxic appearing and is in no distress.? Patient is appropriate for outpatient treatment and follow-up. Differential Diagnosis Differential diagnosis: Likely upper respiratory infection, otitis media, viral infection and other (acute cough) Medical Records Attestation: I reviewed the patient's medical records. Lab Data Attestation: I reviewed the patient's lab results. Critical Care Time Critical Care Time Critical Care Time: No Discharge Plan Discharge Clinical Impression: Acute left otitis media, Upper respiratory infection with cough and congestion Patient Disposition: Home, Self-Care Condition: Stable Instructions: Antibiotic Form, Ear Infection (GEN), Acute Cough (ED) Additional Instructions: Increase fluids especially juices and water Ombr-vpe-ehywezn cough and cold medicine of your choice for your symptoms Zyrtec Claritin or Antonette daily include Coricidin brand decongestant due to elevation of blood pressure Steroids as directed--take with food heat to the face 20-30 minutes 4-6 times a day for pain Salt water gargles, throat lozenges or throat sprays as desired Antibiotic as directed--finished the medication If your symptoms persist, change or worsen significantly before you can contact your personal physician then please, without delay, go to the emergency department for further evaluation. Follow-up with PCP in 7-10 days or sooner if needed Follow up with PCP soon in regards to your blood pressure which is elevated above threshold for referral. Blood pressure above 120/80 may indicate pre-hypertension. 154/93 Recommend Delsym cough medication for cough or Robitussin DM Patient Language: Vietnamese Prescriptions: New cefdinir 300 mg capsule 300 mg PO Q12H Qty: 20 0RF prednisone 20 mg tablet 40 mg PO DAILY 5 Days Qty: 10 0RF ofloxacin 0.3 % drops 5 drp LEFT EAR BID 7 Days Qty: 10 0RF Follow-up/Referrals: Scottie,MD Kurt [Primary Care Provider] - Stand Alone Forms: Work/School Release IP Time of Disposition: 13:24 Quality [place] Coma Scale Eyes: Open Verbal: Oriented and Alert Motor: Follows Commands [place] Coma Total Score: 15
== END 2024-10-24 13:32 | disposition home or self-care (01) ==
PROVIDERS: Emergency Provider Registered Nurse; PCP Internal Medicine
DX: H66.92 Otitis media, unspecified, left ear (principal); J06.9 Acute upper respiratory infection, unspecified; R05.9 Cough, unspecified; I10 Essential (primary) hypertension
CPT/HCPCS: 99213; G0463